=== PATIENT | male | born 1995 | race Hispanic/Latino ===

== ENCOUNTER 2019-05-15 02:14 | Emergency (ER) | payer OTHER ==
[~2019-05-15] VITALS: Ht 188 cm; Wt 158.8 kg
== END 2019-05-15 03:30 | disposition home or self-care (01) ==
LOC: FSED 02:14
DX: T24.602A Corrosion of second degree of unspecified site of left lower limb, except ankle and foot, initial encounter (principal); Y99.0 Civilian activity done for income or pay
CPT/HCPCS: 99283